=== PATIENT | female | born 1980 | race Caucasian/White ===

== ENCOUNTER 2016-10-21 09:21 | Outpatient (CLI) | payer OTHER ==
[~2016-10-21] VITALS: Ht 172.7 cm; Wt 137.7 kg
[~2016-10-21 09:21] MED LIST: ABILIFY 15MG TA15 MG PO; AMITRIPTYLINE H25 M1 PO; CYMBALTA 60MG60 MG PO; IMURAN 50MG TAB50 MG PO; LEVOXYL0.1 MG PO; LEVSIN 0.10.125 MG/T PO; PREDNISONE1 MG PO; PRINZIDE 12.5 M1 TAB PO; PROTONIX 40MG T40 MG PO; VITAMIN D 50,1.25 MG PO
[2016-10-21 10:42] LABS: HEMATOCRIT 37.3 % (37.0-47.0); MEAN CELL VOLUME 82 fl (80.0-100.0); MEAN CORPUSCULAR HEMOGLOBIN 26 pg (27.0-31.0); MEAN CORPUSCULAR HGB CONC 31 g/dl (33.0-37.0); MEAN PLATELET VOLUME 9.5 fl (7.4-10.4); PLATELET COUNT 276 K/mm3 (130-400); RED BLOOD COUNT 4.54 M/mm3 (4.10-5.30); REDCELL DISTRIBUTION WIDTH-CV 15.7 % (11.5-14.5); WHITE BLOOD COUNT 7.6 K/mm3 (4.8-10.8)
[2016-10-21 10:44] VITALS: BP 107/66; PULSE 76; TEMP 98.5
[2016-10-21 10:44] LABS: HEMOGLOBIN 11.6 g/dl (12.5-16.0)
[2016-10-21 10:54] LABS: BILIRUBIN,DIRECT 0.4 mg/dL (0.0-0.4); BILIRUBIN,TOTAL 0.5 mg/dL (0.0-1.0); TOTAL PROTEIN 7.2 gm/dL (6.4-8.2)
== END 2016-10-21 13:57 | disposition home or self-care (01) ==
LOC: EUO 09:21
PROVIDERS: Internal Medicine Gastroenterology
DX: K50.018 Crohn's disease of small intestine with other complication (principal)
CPT/HCPCS: J3380; J7050